=== PATIENT | female | born 1965 | race Caucasian/White ===

== ENCOUNTER 2017-10-28 19:36 | Emergency (ER) | payer OTHER ==
[~2017-10-28] VITALS: Ht 166.4 cm; Wt 67.2 kg
[2017-10-28 19:41] VITALS: TEMP 36.3; Ht 166.4 cm; Wt 67.2 kg
--- NOTE | 2017-10-28 19:53 | EMERGENCY ROOM VISIT NOTE ---
History Report prepared by Semaj: Fantasma Mena Under the Supervision of: Dr. Nino Dotson M.D. First contact with patient: 19:42 Chief Complaint: COUGH Stated Complaint: COUGH,CONGESTION Nursing Triage Summary: pt reports cough sore throat X 1 week , has used neb tx at 1800 History of Present Illness The patient is a 52 year old female who presents to the Emergency Room with complaints of a persistent cough that began one week ago. The patient states that her cough is productive and produces a yellowish mucous. She is unsure of any contacts that had the flu recently. The patent did also have a sore throat, but this has resolved at this time. She has used one of her 's nebulizer treatments, which helped a little. The patient has no significant cardiac/ respiratory history. Source of History: patient Onset: 1 week [employer] Position: chest Quality: other (Cough) Timing: other (Persistent) Associated Symptoms: + sorethroat Review of Systems See HPI for pertinent positives & negatives. A total of 10 systems reviewed and were otherwise negative. Past Medical & Surgical Nothing significant noted. Family History Diabetes mellitus FH: heart disease Hypertension Social History Smoking Status: Current Every Day Smoker Marital Status: Housing Status: lives with significant other Occupation Status: employed Current/Historical Medications Scheduled Albuterol Hfa (Ventolin Hfa), 3 PUFFS INH Q6H Azithromycin (Zithromax), 500 MG PO DAILY Prednisone (Prednisone), 0 PO DAILY Triamterene/Hctz (Dyazide 37.5MG/25MG), 1 TAB PO DAILY Allergies Coded Allergies: Codeine (Unverified Allergy, Unknown, UNKNOWN, 10/28/17) Physical Exam Vital Signs Date Time Temp Pulse Resp B/P (MAP) Pulse Ox O2 Delivery O2 Flow Rate FiO2 10/28/17 20:24 90 20 122/86 96 Room Air 10/28/17 19:41 36.3 92 20 112/75 95 Room Air Physical Exam GENERAL: Patient is in no acute distress. HEENT: No acute trauma, normocephalic atraumatic, mucous membranes moist, no nasal congestion, no scleral icterus. NECK: No stridor, no adenopathy, no meningismus, trachea is midline. LUNGS: The breath sounds are diminished with occasional wheezing bilaterally. There are no crackles, no respiratory distress. A dry cough is noted. HEART: Without murmurs gallops or rubs, regular rate and rhythm. ABDOMEN: Soft, nontender, bowel sounds positive, no hernias, no peritonitis. EXTREMITIES: No cyanosis or edema, full range of motion of all the joints without pain or difficulty, no signs for acute trauma. NEUROLOGIC: Oriented x 3, no acute motor or sensory deficits, no focal weakness. SKIN: No rash, no jaundice, no diaphoresis. Medical Decision & Procedures ER Provider Diagnostic Interpretation: Radiology results as stated below per my review and radiologist interpretation: CHEST ONE VIEW PORTABLE CLINICAL HISTORY: cough, fever, congestion dyspnea COMPARISON STUDY: No previous studies for comparison. FINDINGS: The bones soft tissues and hemidiaphragms are normal. The cardiomediastinal silhouette is normal. The lungs are clear. The pulmonary vasculature is normal. IMPRESSION: Negative chest. The above report was generated using voice recognition software. It may contain grammatical, syntax or spelling errors. Electronically signed by: Rao Kay M.D. 10/28/2017 8:05 PM Dictated Date/Time: 10/28/2017 8:05 PM Medications Administered Medications (Trade) Dose Ordered Sig/Veronica Route Start Time Stop Time Status Last Admin Dose Admin Albuterol (Ventolin Hfa Inhaler) 3 puffs NOW ONCE INH 10/28/17 20:00 10/28/17 20:01 DC 10/28/17 19:54 3 PUFFS Prednisone (PredniSONE TAB) 60 mg NOW STAT PO 10/28/17 19:46 10/28/17 19:48 DC 10/28/17 19:54 60 MG Azithromycin (Zithromax Tab) 500 mg NOW STAT PO 10/28/17 20:18 10/28/17 20:19 DC 10/28/17 20:23 500 MG ED Course 1942: The patient was evaluated in room B2. A complete history and physical exam was performed. 1945: Ordered Prednisone 50 mg PO, Albuterol 3 puffs INH. 2010: Reevaluated the patient. Discussed results and discharge instructions: she verbalized understanding and agreement. The patient is ready for discharge. 2018: Ordered Azithromycin 500 mg PO. Medical Decision Differential Diagnosis includes; bronchitis, pneumonia, congestive heart failure , influenza, influenza-like illness, hypoxia, and pneumothorax. Patient presents with a persistent cough for a week. She is a smoker. She has not had any recent influenza exposures. She is not febrile. She is not hypoxic. Chest film does not show pneumonia, pneumothorax or CHF. I believe the patient has an acute bronchitis. Given her week of symptoms, given her smoking history, I do think antibiotics are indicated. The patient was given oral prednisone, albuterol via [facility]I, oral Zithromax. She is being discharged on the same. Medication Reconcilliation Current Medication List: was personally reviewed by me Blood Pressure Screening Patient's blood pressure: Normal blood pressure Impression Primary Impression: Acute bronchitis Scribe Attestation The scribe's documentation has been prepared under my direction and personally reviewed by me in its entirety. I confirm that the note above accurately reflects all work, treatment, procedures, and medical decision making performed by me. Departure Information Dispostion Home / Self-Care Prescriptions Albuterol Hfa (VENTOLIN HFA) 200 Puffs/10956 Mcg Aers 3 PUFFS INH Q6H, #1 INHALER Prov: Nino Dotson M.D. 10/28/17 Prednisone (Prednisone) 20 Mg Tab 0 PO DAILY, #18 TAB 3 DAILY FOR 3 DAYS, THEN 2 DAILY FOR 3 DAYS, THEN 1 DAILY FOR 3 DAYS. Prov: Nino Dotson M.D. 10/28/17 Azithromycin (Zithromax) 500 Mg Tab 500 MG PO DAILY, #5 TAB Prov: Nino Dotson M.D. 10/28/17 Referrals No Doctor, Assigned (PCP) Forms HOME CARE DOCUMENTATION FORM, IMPORTANT VISIT INFORMATION Patient Instructions My [facility] Additional Instructions rest fluids prednisone and zithromax as directed albuterol 3 puffs every 4 hours return if breathing worsens chest film today was ok.
[2017-10-28] MEDS ORDERED: TRIA37.5 PO (19:54)
[2017-10-28] MEDS ORDERED: ALBUTEROL HFA 8 GM INHALER INH ONE (20:00)
--- NOTE | 2017-10-28 20:06 | DIAGNOSTIC IMAGING REPORT ---
CHEST ONE VIEW PORTABLE CLINICAL HISTORY: cough, fever, congestion dyspnea COMPARISON STUDY: No previous studies for comparison. FINDINGS: The bones soft tissues and hemidiaphragms are normal. The cardiomediastinal silhouette is normal. The lungs are clear. The pulmonary vasculature is normal. IMPRESSION: Negative chest. The above report was generated using voice recognition software. It may contain grammatical, syntax or spelling errors. Electronically signed by: Rao Kay M.D. 10/28/2017 8:05 PM Dictated Date/Time: 10/28/2017 8:05 PM
[2017-10-28] MEDS ORDERED: AZITHROMYCIN 250 MG TAB PO STA (20:18)
[2017-10-28] MEDS ORDERED: AZIT500T26 PO (20:21)
[2017-10-28] MEDS ORDERED: PRED20TA PO (20:21)
[2017-10-28] MEDS ORDERED: VNTHFA/IN INH (20:21)
[2017-10-28 20:24] VITALS: BP 122/86; PULSE 90; O2SAT 96
== END 2017-10-28 20:29 | disposition home or self-care (01) ==
LOC: C.EDB 19:37
DX: R05 Cough (principal); F17.200 Nicotine dependence, unspecified, uncomplicated; Z83.3 Family history of diabetes mellitus; Z82.49 Family history of ischemic heart disease and other diseases of the circulatory system; Z88.5 Allergy status to narcotic agent; J20.9 Acute bronchitis, unspecified